=== PATIENT | female | born 1930 | race Caucasian/White ===

== ENCOUNTER 2016-08-01 12:40 | Inpatient (IN) | payer MEDICARE, BC ==
--- NOTE | ~2016-08-01 | DS ---
Discharge Summary [facility] [address] [facility] [place]. [address] NAME: FLORENCIO LI : [birth year] STATUS : DIS IN PAT#: [id number] AGE: 86 ADM/REG DATE : 08/01/16 MR#: [id number] REPORT SERV DATE: 08/06/16 DICTATED BY: BIENVENIDO KENDALL DATE: 08/05/16 REPORT STATUS : Draft TRANSCRIBED BY: MODL DATE: 08/05/16 ADMISSION DATE: 08/01/2016 DISCHARGE DATE: 08/05/2016 CONSULTANTS: Dr. Nicanor Mccollum, Cardiology; Valerie Sahh, Neurology, nurse practitioner. DISCHARGE DIAGNOSES: 1. Suspected acute ischemic stroke, right anterior cerebral artery. 2. Sick sinus syndrome with pacemaker. 3. Previous stress cardiomyopathy in 2014. 4. Hypothyroidism. 5. Obstructive sleep apnea, not on any therapy. 6. Suspected mild cognitive deficit. 7. Status post chest pain. HISTORY: This patient on 08/01/2016 presented to our emergency room. She got up and fell. She states initially she felt like she had weakness in her right leg, and then later after being here, stated she felt like she had weakness in her left leg. She also had some numbness in the right side which later went to the left side. Because of this she came to the emergency room at [facility]. She had a CT scan of the brain without contrast showing moderate generalized atrophy, evidence for old deep white matter changes in the basal ganglia and left caudate nucleus. The patient has a pacemaker that apparently was not MRI compatible, so she had a CTA of the brain on 08/02/2016. The carotids, vertebrals, and subclavians were normal. The intracranial vessels were normal. Followup CT of the brain without contrast, 08/03/2016, showed no acute changes. Because of the objective evidence for weakness in her left lower extremity, it was thought that she probably had an acute right anterior cerebral artery stroke. Neurology also ordered a CT of the lumbar and thoracic spine which revealed degenerative disk changes. There was some evidence for an old L1 compression fracture and a small node at L1. The patient had some chest pains after she came in the hospital. She had a mild elevation of troponin 0.12 that stayed this on repeat. Her EKG revealed no evidence of acute injury. Echocardiogram, 08/04/2016, showed normal left ventricular size and ejection fraction 50%, mild left ventricular diastolic dysfunction, mild aortic stenosis. No evidence of a right- to-left shunt. The [facility] was consulted. Dr. Nicanor Mccollum saw the patient, indicated that coronary artery disease was assessed in the past, but was negative on a heart catheterization for any significant abnormalities, so he did not feel any further intervention was done at this time. The patient had no further discomfort. She was assessed by Physical Therapy and felt to need inpatient rehab. Those arrangements have been made. Statin and an aspirin have been added. Dr. Mccollum ordered metoprolol 25 mg b.i.d. also. DISCHARGE MEDICATIONS: Will include, aspirin 325 mg daily, Lipitor 80 mg daily, levothyroxine 75 mcg daily (TSH normal at 1.38), metoprolol 25 mg b.i.d., Tylenol 650 mg q.6 hours p.r.n. pain, melatonin 3 mg at bedtime p.r.n. insomnia. Discharge Summary [address] [address] NAME: FLORENCIO LI : [birth year] STATUS : DIS IN PAT#: [id number] AGE: 86 ADM/REG DATE : 08/01/16 MR#: [id number] REPORT SERV DATE: 08/06/16 DICTATED BY: BIENVENIDO KENDALL DATE: 08/05/16 REPORT STATUS : Draft TRANSCRIBED BY: MATTL DATE: 08/05/16 She is to go to [facility] rehab. Thereafter, she should follow up with her PCP, Dr. Thao Bell, and also with Cardiology, Dr. Siva Barboza. 28 minutes spent today with the patient and with discharge planning. DICTATED BY: Donny Samaniego/ZULEIMA Bienvenido Kendall M.D. / [id number] CC: Bienvenido Kendall M.D. [facility] Donny Mata M.D.
--- NOTE | ~2016-08-01 | CN ---
Consultation Report [facility] [address] [place]. [address] NAME: FLORENCIO LI : [birth year] STATUS : ADM IN [facility]#: [id number] AGE: 86 ADM/REG DATE : 08/01/16 MR#: [id number] REPORT SERV DATE: 08/03/16 DICTATED BY: VALERIE DE LA TORRE DATE: 08/03/16 REPORT STATUS : Draft TRANSCRIBED BY: MODL DATE: 08/03/16 NEUROLOGY CONSULTATION DATE OF CONSULTATION: 08/03/2016 REASON FOR CONSULTATION: TIA versus stroke. PCP: None. HOSPITALIST: Dr. Charli Yeboah. LIBRARIAN: Dr. Siva Barboza. HISTORY OF PRESENT ILLNESS: The patient is an 86-year-old female, who woke up at 1 a.m. Wednesday morning and fell out of bed. She took one step out of her bed and her right foot gave way, she fell to the floor. She found this quite unusual, but did not pass out. She did not hit her head. She did not have any serious injuries and went back to bed until the morning. When she got up in the morning, she and her decided that she needed to be evaluated for the possibility of having a stroke. So, she came to the emergency department for further evaluation and treatment. What was unusual about her case was that initially she had weakness in the right leg, but as the day progressed her right leg weakness seemed to resolve and then she became weak in the left leg. As of today, she is weak in her left leg but her right leg seems to be fine. She denies any numbness or tingling associated with the weakness. She denies any visual changes, any numbness or weakness in the upper extremities. She denies any changes in speech or changes in vision. The patient does mention that she has pain in her left sciatic region. She feels that she might have this discomfort because she has been lying in the bed for several days. She denies any changes in bowel or bladder habitus. PAST MEDICAL HISTORY: TIA, hypothyroidism, non-STEMI, nonischemic cardiomyopathy, mild coronary artery disease, takotsubo cardiomyopathy, sick sinus syndrome with pacemaker placement in 2014, hypertension, nonobstructive sleep apnea, peptic ulcer disease, and progressive memory loss. PAST SURGICAL HISTORY: Pacemaker placement in 2014. MEDICATIONS: Home medication list includes levothyroxine 75 mcg daily. ALLERGIES: PHENERGAN, SULFA, NITROFURANTOIN, AND CIPROFLOXACIN. SOCIAL HISTORY: The patient is . She is retired. She does not smoke. She does not drink alcohol or use illicits. Consultation Report [facility] [address] [place]. [address] NAME: FLORENCIO LI : [birth year] STATUS : ADM IN PAT#: [id number] AGE: 86 ADM/REG DATE : 08/01/16 MR#: [id number] REPORT SERV DATE: 08/03/16 DICTATED BY: VALERIE DE LA TORRE DATE: 08/03/16 REPORT STATUS : Draft TRANSCRIBED BY: ZULEIMA DATE: 08/03/16 FAMILY HISTORY: The patient's mother cause of is unsure. Her father at the age of 56 from an MT. She lost one son in a drowning accident where he was trying to save his own son from drowning. REVIEW OF SYSTEMS: See HPI for pertinent positives. PHYSICAL EXAMINATION: VITAL SIGNS: The patient is an 86-year-old female, who stands 162.56 cm and weighs 41.75 kg. She is afebrile, heart rate 85, respiratory rate 14, O2 saturations on room air 96%, blood pressure 174/79. NEURO: The patient is alert. She is oriented x4. Pleasant, communicates appropriately. Speech is clear. Language fluent. Pupils are 3 mm. PERRLA. Cranial nerves 2 through 12 are intact. Vision via confrontation is full in both aparicio. She can move the upper extremities without any difficulty. There is no pronator drift. Jgvmna-fq-kvmq, no ataxia. No tremor, dysmetria, asterixis. Upper extremity strength is 5/5. No reported sensory deficits. Upper DTRs are 2+ bilaterally. Lower extremity strength is 4/5 on the right and 1/5 on the left. Patellar reflexes are 2+ bilaterally. Achilles unelicitable. The patient has downgoing toes on the right and silent on the left. No reported sensory deficits in the lower extremities. The patient has exquisite tenderness over the left SI joint. NECK: No carotid bruits, JVD, or thyromegaly. CHEST: Lung sounds are clear. CARDIAC: Regular rate and rhythm. LABORATORY DATA: CBC is normal. BMP normal. Vitamin B12 of 1076. Troponin is negative. CT of the brain without contrast on 08/01/2016, moderate atrophy. No acute changes. There is chronic changes in the basal ganglia and left caudate nucleus. No acute bleed. CT of the neck, no acute changes. Echocardiogram is pending. Chest x-ray, there is a pacemaker placement. No acute changes. ASSESSMENT/PLAN: Sudden onset of bilateral leg weakness, right first and then the left, etiology unknown. This is not a typical presentation for stroke. We will go ahead and obtain a CT of the L-spine with and without contrast and then repeat the CT of the brain without contrast. We will obtain lab work and urinalysis, PT/OT consultation. The patient will continue aspirin and statin for possible stroke. Permissive hypertension will be instituted and we will progress from there. Thank you again for including us in consultation. We will continue to follow with you. JUSTIN/ZULEIMA Valerie De La Torre, [place], [facility] Consultation Report [address] [place]. [address] NAME: FLORENCIO LI : [birth year] STATUS : ADM IN [facility]#: [id number] AGE: 86 ADM/REG DATE : 08/01/16 MR#: [id number] REPORT SERV DATE: 08/03/16 DICTATED BY: VALERIE DE LA TORRE DATE: 08/03/16 REPORT STATUS : Draft TRANSCRIBED BY: ZULEIMA DATE: 08/03/16 / [id number] CC: Charli Kendall M.D. Charli Yeboah M.D. Siva Barboza M.D.
--- NOTE | ~2016-08-01 | CN ---
Consultation Report [facility] [address] [place]. [address] NAME: FLORENCIO LI : [birth year] STATUS : ADM IN [facility]#: [id number] AGE: 86 ADM/REG DATE : 08/01/16 MR#: [id number] REPORT SERV DATE: 08/04/16 DICTATED BY: SHANNA SHEETS DATE: 08/03/16 REPORT STATUS : Draft TRANSCRIBED BY: MODL DATE: 08/03/16 DATE OF CONSULTATION: REASON FOR CONSULTATION: Chest discomfort. POOL COORDINATOR: Siva Barboza M.D. HISTORY OF PRESENT ILLNESS: The patient is an 86-year-old woman, who presented with both right and left leg weakness with consideration for possible CVA or TIA. A CT scan has been unremarkable. Most of these symptoms have resolved. She was also complaining of some chest discomfort described as chest tightness, which she claims she is no longer having. Her EKG was unremarkable. She has had multiple troponin values, which have consistently been at 0.12. She is not having chest discomfort at this point in time. PAST MEDICAL HISTORY: Notable for a history of a stress cardiomyopathy that has resolved. She has mild coronary disease. She has a history of sick sinus syndrome with pacemaker placement, history of hypertension and obstructive sleep apnea, as well as some problems with dementia. FAMILY HISTORY: Notable for her father who had myocardial infarction at age 56. No other significant findings. SOCIAL HISTORY: Negative for tobacco or alcohol. REVIEW OF SYSTEMS: As noted above. All other systems reviewed and negative. PHYSICAL EXAMINATION: VITAL SIGNS: Blood pressure earlier today was 186/90, pulse of 66, respirations 16. GENERAL: Well developed, well nourished. HEENT: No icterus. Good dentition. NECK: Supple. No masses or thyromegaly. LUNGS: Breathing comfortably. No rales or wheezes. COR: Normal S1 and S2. No S3 or S4. No murmurs, clicks, rubs. No JVD. ABD: Soft, nondistended, nontender. No hepatosplenomegaly. EXT: No clubbing, cyanosis, or edema. Peripheral pulses 2+/= bilaterally. SKIN: Warm and dry. No visible lesions. MS: Chest wall without deformity. No obvious clavicular fractures. NEURO/PSYCH: Oriented x3. No anxiety or depression. The pacemaker is well healed in left infraclavicular pocket. DIAGNOSTIC STUDIES: EKG demonstrates sinus rhythm, first-degree AV block, QRS within normal limits, QT interval within normal limits, nonspecific ST-T wave abnormalities. Consultation Report [facility] [address] [place] [address] NAME: FLORENCIO LI : [birth year] STATUS : ADM IN PAT#: [id number] AGE: 86 ADM/REG DATE : 08/01/16 MR#: [id number] REPORT SERV DATE: 08/04/16 DICTATED BY: SHANNA SHEETS DATE: 08/03/16 REPORT STATUS : Draft TRANSCRIBED BY: ZULEIMA DATE: 08/03/16 IMPRESSION: The patient with a history of a stress cardiomyopathy that has resolved. She presents with what was thought to be possible transient ischemic attack symptoms, although they are quite unusual in that her weakness was alternating between her right and left leg. She is now completely denying any weakness. She also had some complaints of chest discomfort described as a chest tightness, which has resolved. Coronary disease has been assessed in the past and is negative for significant coronary artery disease. I would try to treat her conservatively with sublingual nitroglycerin given on a p.r.n. basis. I am going to add metoprolol as the patient also has significant hypertension. I would also consider adding amlodipine if we need further medications for her blood pressure and this may also help as an antianginal agent as well. Again, I would recommend conservative treatment at this point in time. Her troponin values of 0.12 that have not changed over five different blood draws would strongly suggest that this is not a [id number] myocardial infarction. KEERTHI/ZULEIMA Shanna Sheets M.D. / [id number] CC: Charli Kendall M.D.
--- NOTE | ~2016-08-01 | HP ---
History And Physical [facility] [id number] [facility] [place]. [address] NAME: FLORENCIO LI : [birth year] STATUS : ADM IN [facility]#: [id number] AGE: 86 ADM/REG DATE : 08/01/16 MR#: [id number] REPORT SERV DATE: 08/01/16 DICTATED BY: BIENVENIDO RANGEL DATE: 08/01/16 REPORT STATUS : Draft TRANSCRIBED BY: ZULEIMA DATE: 08/01/16 DATE OF ADMISSION: 08/01/2016 TECHNICAL INSPECTOR: Dr. Barboza. This is an 86-year-old female who comes in for leg weakness, right more than the left. The patient says that she had 2 minor strokes in the past and a permanent pacemaker. She said that she was relatively healthy until this morning when she tried to get up to go to the bathroom when she felt weakness of her lower extremity,right greater than the left and fell. Her had to pick her up from the floor, bring her to the bathroom, and then help her back to the bed. She tried to get up again a few hours later and she could not. She was then brought here. In the emergency room, they did an x-ray and a CAT scan which was unrevealing and we are now called to admit the patient for possible stroke. The patient says that her lower extremities are getting better. She denies any upper extremity problem. There was no note of any fever, chills, sweats, loss of consciousness, change in mental status, or dysarthria. She was able to eat without any nausea or vomiting. There is no urinary or bowel changes. No cough. There is no pain. There is no blurring of vision, skin rashes, or joint pain and the rest of the 14-point review of systems is negative except as above. PAST MEDICAL HISTORY: She denies any past medical history except for hypothyroidism and mini stroke; however, old records revealed that she was here 2 years ago for nonSTEMI, nonischemic cardiomyopathy, mild CAD, takotsubo cardiomyopathy, sick sinus syndrome with a pacemaker placement, hypertension, and obstructive sleep apnea. ALLERGIES: SHE IS ALLERGIC TO STATIN, CIPRO, AND SULFA. SHE ONLY TAKES SYNTHROID AND SHE TOLD ME THAT SHE DOES NOT LIKE TAKING MEDICATIONS UNLESS SHE HAS TO. SHE WAS DISCHARGED THE LAST TIME ON ASPIRIN, LIPITOR, COREG, VITAMIN D, COLACE, PRINIVIL, AND NITROSTAT. FAMILY HISTORY: Dad had an SD at the age of 56. SOCIAL HISTORY: The patient does not smoke, drink, or use recreational drugs. PHYSICAL EXAMINATION: GENERAL: The patient is alert and oriented x3, not in cardiopulmonary distress. VITAL SIGNS: Include a blood pressure of 175/82, temperature 98.5, pulse rate of 67, respirations 16, and saturating 97% on room air. NECK: She has supple neck. No JVD or carotid bruits. No lymphadenopathy. [place] conjunctivae. Anicteric sclerae. No pharyngeal erythema. LUNGS: Clear lungs. No rales, no wheezes. CARDIOVASCULAR: Regular rate and rhythm. No murmurs appreciated. Positive bowel sounds. Soft, nontender, no masses. EXTREMITIES: Fair pulses no edema. NEUROLOGIC: It is nonlocalizing. She was able to walk without assistance. History And Physical [address] [address] NAME: FLORENCIO LI : [birth year] STATUS : ADM IN [facility]#: [id number] AGE: 86 ADM/REG DATE : 08/01/16 MR#: [id number] REPORT SERV DATE: 08/01/16 DICTATED BY: BIENVENIDO RANGEL DATE: 08/01/16 REPORT STATUS : Draft TRANSCRIBED BY: ZULEIMA DATE: 08/01/16 LABORATORY: Shows basic metabolic panel is within normal limits. Troponin is 0.12; however, it has been elevated at 0.1 since 2012. CBC is unremarkable. ASSESSMENT: 1. Right-sided weakness. Rule out CVA. 2. History of permanent pacemaker for sick sinus syndrome. 3. Chronically elevated troponin with history of takotsubo cardiomyopathy. 4. CAD with history of SD. 5. Hypertension. 6. Obstructive sleep apnea. 7. Noncompliance. PLAN: It is unclear what caused the transient weakness of the patient. Her risk for TIA is high per her previous history. We will review the CAT scan and get MRI if she has a MRI compatible-permanent pacemaker; if not, we will do a CTA of the neck and head. We will check the echo, hemoglobin A1c, lipid profile, place on aspirin. I have to discuss whether she is willing to take the statin because she mentioned that she is allergic to it but was given statins in the past. We will follow the troponin. Allow the blood pressure to be elevated for now until we rule out a stroke, then we would need to control that. We will place on oxygen protocol. I have counseled her on compliance. We will check the TSH as well. This has been explained to the patient and she agreed and understood the plan. NANCY/ZULEIMA Bienvenido Rangel M.D. / [id number] CC: Donny Durand M.D.
[2016-08-01 10:42] LABS: BASOPHILS 0.6 %; BASOPHILS ABSOLUTE 0.03 10/3/uL (0.0-0.16); EOSINOPHILS 3.2 %; EOSINOPHILS ABSOLUTE 0.17 10/3/uL (0.0-0.53); ER CBC TAT 0 Hrs 09 Mins; HEMOGLOBIN 13.4 g/dL (12.0-16.0); IMMATURE GRANULOCYTES 0.2 %; IMMATURE GRANULOCYTES ABSOLUTE 0.01 10/3/uL (0.0-0.11); LYMPHOCYTES 16.2 %; LYMPHOCYTES ABSOLUTE 0.85 10/3/uL (0.67-4.30); MEAN CORPUS HGB CONC 33.3 g/dL (32.0-36.0); MEAN CORPUSCULAR HEMOGLOB 31.5 pg (26.0-34.0); MEAN CORPUSCULAR VOLUME 94.6 fL (80-100); MEAN PLATELET VOLUME 9.9 fL (9.2-13.0); MONOCYTES 6.1 %; MONOCYTES ABSOLUTE 0.32 10/3/uL (0.21-1.20); NEUTROPHILS 73.7 %; NEUTROPHILS ABSOLUTE 3.86 10/3/uL (2.02-8.40); PLATELET COUNT 186 10/3/uL (150-400); RBC DISTRIBUTION WIDTH 13.4 % (12.0-16.0); RED CELL COUNT 4.26 10/6/uL (4.0-5.6); WHITE BLOOD CELLS 5.2 10/3/uL (4.5-10.5)
[2016-08-01 10:43] LABS: HEMATOCRIT 40.3 % (36.0-48.0); MANUAL DIFF NO %
[2016-08-01 10:44] LABS: INTERNATIONAL NORMAL RATI 1.1 UNITS (-); PROTIME (NOT ORD) 13.9 SEC (12.0-14.5)
[2016-08-01 10:45] LABS: PARTIAL THROMBO TIME 29.8 SEC (22.5-37.2)
[2016-08-01 10:55] LABS: BUN (BLOOD UREA NITROGEN) 13 MG/DL (6-23); CALCIUM, SERUM 8.9 MG/DL (8.5-10.4); CHLORIDE, SERUM 105 MMOL/L (96-112); CO2 (CARBON DIOXIDE) 32 MMOL/L (24-34); GFR AFRICAN AMERICAN 90 ML/MIN (>=60); GFR NON AFRICAN AMERICAN 77 ML/MIN (>=60); GLUCOSE, SERUM 93 MG/DL (60-99); POTASSIUM, SERUM 3.8 MMOL/L (3.5-5.3); SODIUM, SERUM 140 MMOL/L (135-148)
[2016-08-01 10:57] LABS: CHEST PAIN PROFILE TAT 0 Hrs 24 Mins; TROPONIN I 0.12 NG/ML (<0.05)
[~2016-08-01 12:40] MED LIST: ASA5GR; ASA5GR PO; ASAB PO; COREG3 PO; DSS PO; LEVOTHYROXIN125 MCG PO; LEVOTHYROXIN75 MCG PO; LIPITOR20 PO; MEMORY SUPPLEMENT PO; MULTIPLE VIT PO; MULTIVIT/MIN PO; NITROSTAT0.4 MG SL; NTG150 SL; OCEAN NAS; PRIN2.5 PO; PRIN5 PO; REFRESH OPH; SYN075 PO; ULTRAM50 PO; VITAMIN D1000 UNI1 PO; VITAMIN D31000 UNIT PO; [UNRECOGNIZED DRUG - REMARK] PO
[2016-08-01 17:20] LABS: BASOPHILS 0.3 %; BASOPHILS ABSOLUTE 0.02 10/3/uL (0.0-0.16); EOSINOPHILS 2.9 %; EOSINOPHILS ABSOLUTE 0.17 10/3/uL (0.0-0.53); HEMATOCRIT 40.7 % (36.0-48.0); HEMOGLOBIN 13.4 g/dL (12.0-16.0); IMMATURE GRANULOCYTES 0.3 %; IMMATURE GRANULOCYTES ABSOLUTE 0.02 10/3/uL (0.0-0.11); LYMPHOCYTES 16.8 %; LYMPHOCYTES ABSOLUTE 0.98 10/3/uL (0.67-4.30); MEAN CORPUS HGB CONC 32.9 g/dL (32.0-36.0); MEAN CORPUSCULAR HEMOGLOB 31.1 pg (26.0-34.0); MEAN CORPUSCULAR VOLUME 94.4 fL (80-100); MEAN PLATELET VOLUME 10.5 fL (9.2-13.0); MONOCYTES 8.2 %; MONOCYTES ABSOLUTE 0.48 10/3/uL (0.21-1.20); NEUTROPHILS 71.5 %; NEUTROPHILS ABSOLUTE 4.17 10/3/uL (2.02-8.40); PLATELET COUNT 186 10/3/uL (150-400); RBC DISTRIBUTION WIDTH 13.1 % (12.0-16.0); RED CELL COUNT 4.31 10/6/uL (4.0-5.6); WHITE BLOOD CELLS 5.8 10/3/uL (4.5-10.5)
[2016-08-01 17:22] LABS: MANUAL DIFF NO %
[2016-08-01 17:29] LABS: INTERNATIONAL NORMAL RATI 1.1 UNITS (-); PARTIAL THROMBO TIME 28.5 SEC (22.5-37.2); PROTIME (NOT ORD) 13.7 SEC (12.0-14.5)
[2016-08-01 17:36] LABS: CK-MB 1.1 NG/ML; CPK 50 U/L (0-200); TROPONIN I 0.12 NG/ML (<0.05)
[2016-08-01 17:44] LABS: A/G RATIO 1.1 (0.7-1.9); ALBUMIN 3.7 G/DL (3.5-5.0); ALKALINE PHOSPHATASE 76 U/L (45-117); BUN (BLOOD UREA NITROGEN) 15 MG/DL (6-23); CALCIUM, SERUM 8.8 MG/DL (8.5-10.4); CHLORIDE, SERUM 106 MMOL/L (96-112); CHOLESTEROL 186 MG/DL (< 200); CO2 (CARBON DIOXIDE) 33 MMOL/L (24-34); CREATININE 0.69 MG/DL (0.55-1.02); GFR AFRICAN AMERICAN 90 ML/MIN (>=60); GFR NON AFRICAN AMERICAN 78 ML/MIN (>=60); GLOBULIN 3.4 G/DL (2.5-4.1); GLUCOSE, SERUM 86 MG/DL (60-99); HDL CHOLESTEROL 92 MG/DL (> 49); LDL CHOLESTEROL 83 MG/DL (< 130); NON-HDL CHOLESTEROL 94 MG/DL (< 160); POTASSIUM, SERUM 3.8 MMOL/L (3.5-5.3); SGOT(AST) 24 U/L (5-40); SGPT(ALT) 24 U/L (5-65); SODIUM, SERUM 144 MMOL/L (135-148); TOTAL BILIRUBIN 0.3 MG/DL (0-1.2); TOTAL PROTEIN 7.1 G/DL (6.0-8.5); TRIGLYCERIDE 55 MG/DL (< 150)
[2016-08-02 00:22] LABS: CPK 43 U/L (0-200); TROPONIN I 0.12 NG/ML (<0.05)
[2016-08-02 10:49] LABS: CPK 42 U/L (0-200)
[2016-08-02 10:50] LABS: TROPONIN I 0.12 NG/ML (<0.05)
[2016-08-03 15:49] LABS: ASCORBIC ACID (UR NOT ORDER) NEG (NEG); BILIRUBIN, URINE NEGATIVE (NEG); KETONE, URINE TRACE MG/DL (NEG); LEUKOCYTE ESTERASE(NOT OR SMALL (NEG); WBC (NOT ORDERED) (RFLEX) 4 (0-5)
[2016-08-03 16:39] LABS: BUN (BLOOD UREA NITROGEN) 15 MG/DL (6-23); CALCIUM, SERUM 8.9 MG/DL (8.5-10.4); CHLORIDE, SERUM 103 MMOL/L (96-112); CHOL/HDL RATIO(NOT ORDER) 2.1 (0-5); CHOLESTEROL 192 MG/DL (< 200); CO2 (CARBON DIOXIDE) 30 MMOL/L (24-34); CPK 49 U/L (0-200); CREATININE 0.77 MG/DL (0.55-1.02); FREE T4 1.25 NG/DL (0.76-1.46); GFR AFRICAN AMERICAN 80 ML/MIN (>=60); GFR NON AFRICAN AMERICAN 69 ML/MIN (>=60); GLUCOSE, SERUM 98 MG/DL (60-99); HDL CHOLESTEROL 91 MG/DL (> 49); LDL CHOLESTEROL 90 MG/DL (< 130); NON-HDL CHOLESTEROL 101 MG/DL (< 160); POTASSIUM, SERUM 3.7 MMOL/L (3.5-5.3); SODIUM, SERUM 138 MMOL/L (135-148); TRIGLYCERIDE 56 MG/DL (< 150)
[2016-08-03 16:45] LABS: FOLATE 30.4 NG/ML (>5.2)
[2016-08-03 17:04] LABS: C-REACTIVE PROTEIN 4.9 MG/L (<8.0)
== END 2016-08-05 16:48 | DRG 65 ==
LOC: ER 12:40 → 1SO 13:27
PROVIDERS: Hospitalist; Internal Medicine; Nurse Practitioner
DX: I63.9 Cerebral infarction, unspecified (principal); G81.91 Hemiplegia, unspecified affecting right dominant side; I42.8 Other cardiomyopathies; S32.019A Unspecified fracture of first lumbar vertebra, initial encounter for closed fracture; I49.5 Sick sinus syndrome; F03.90 Unspecified dementia, unspecified severity, without behavioral disturbance, psychotic disturbance, mood disturbance, and anxiety; E03.9 Hypothyroidism, unspecified; I44.0 Atrioventricular block, first degree; I25.10 Atherosclerotic heart disease of native coronary artery without angina pectoris; I25.2 Old myocardial infarction; G47.33 Obstructive sleep apnea (adult) (pediatric); W18.30XA Fall on same level, unspecified, initial encounter; Z79.899 Other long term (current) drug therapy; Z91.14 Patient's other noncompliance with medication regimen; Z95.0 Presence of cardiac pacemaker; Z87.11 Personal history of peptic ulcer disease; Z88.1 Allergy status to other antibiotic agents; Z88.2 Allergy status to sulfonamides; Z88.8 Allergy status to other drugs, medicaments and biological substances
CPT/HCPCS: 70450; 70496; 70498; 71020; 72128; 72130; 72133; 80048; 80053; 80061; 81001; 82085; 82306; 82533; 82550; 82553; 82607; 82746; 83036; 83735; 84439; 84443; 84484; 85025; 85610; 85652; 85730; 86140; 87086; 93005; 93306; 97110-GP; 97116-GP; 97161-GP; 97166-GO; 99285; A9270-GY; G8978-CK-GP; G8979-CJ-GP; G8987-CJ-GO; G8988-CI-GO; J0360; J2405; Q9967